=== PATIENT | female | born 1955 | race Caucasian/White ===

== ENCOUNTER 2018-02-17 15:48 | Emergency (ER) | payer BC ==
[~2018-02-17] VITALS: Ht 154.9 cm; Wt 87.4 kg
[~2018-02-17 15:48] MED LIST: ASPIRIN; CLONIDINE; CLONIDINE HCL0.1 MG PO; COUMADIN; COUMADIN,JANTO2.5 MG PO; DILAUDID; DILAUDID2 MG PO; EFFEXOR; EFFEXOR XR37.5 MG PO; KLOR-CON M2020 MEQ PO; L-LYSINE500 M2 PO; MULTIVITAMIN1 EAC1 PO; MVI; OMEPRAZOLE10 MG PO; POTASSIUM; PREMARIN; PREMARIN0.625 MG PO; PRILOSEC; SIMVASTATIN40 M1 PO; TRIAMTERENE-HC1 EAC3 PO; VITAMIN D; VITAMIN D31000 UNIT PO; ZOCOR; ZYRTEC; ZYRTEC10 M2 PO; [UNRECOGNIZED DRUG - REMARK]
[2018-02-17 16:27] LABS: HEMATOCRIT 42.3 % (36.0-46.0); HEMOGLOBIN 13.9 G/DL (11.9-15.5); MCH 29.6 PG (29.0-34.0); MCHC 32.9 G/DL (30.0-36.0); PLATELET COUNT 201 K/uL (156-360); RBC DIS.WIDTH-CV 13.1 % (11.8-14.6); RBC DIS.WIDTH-SD 43.7 % (39-53); WHITE BLOOD COUNT 7.3 K/uL (4.1-10.2)
[2018-02-17 16:36] LABS: CHLORIDE 103 mEq/L (99-109); POTASSIUM 3.7 mEq/L (3.7-5.4); SODIUM 138 mEq/L (136-147)
[2018-02-17 16:38] LABS: GLUCOSE 92 mg/dL (70-99)
[2018-02-17 16:42] LABS: GFR ESTIMATE (CALCULATED) > 59 mL/min/
[2018-02-17 16:43] LABS: UREA NITROGEN (BUN) 21 mg/dL (9-23)
[2018-02-17 16:50] LABS: TROP-I INTERPRETATION NEGATIVE; TROPONIN-I < 0.01 ng/mL (0.0-0.30)
[2018-02-17 18:55] LABS: ALBUMIN 4.1 g/dL (3.2-4.8)
[2018-02-17 18:58] LABS: TOTAL PROTEIN 7.2 g/dL (6.4-8.3)
[2018-02-17 19:00] LABS: TOTAL BILIRUBIN 0.5 mg/dL (0.0-1.0)
[2018-02-17 19:01] LABS: ALKALINE PHOSPHATASE 76 IU/L (3-129)
[2018-02-17 19:04] LABS: ALT (GPT) 15 IU/L (3-49); AST (GOT) 15 IU/L (2-34); DIRECT BILIRUBIN 0.2 mg/dL (0.0-0.3)
[2018-02-17 19:05] LABS: LIPASE 36 U/L (1.0-51.0)
[2018-02-17 19:14] LABS: TROP-I INTERPRETATION NEGATIVE; TROPONIN-I < 0.01 ng/mL (0.0-0.30)
[2018-02-17 21:14] VITALS: BP 152/67
== END 2018-02-17 21:15 | disposition home or self-care (01) ==
LOC: EME 15:48
PROVIDERS: Emergency Medicine
DX: R07.9 Chest pain, unspecified (principal); K80.20 Calculus of gallbladder without cholecystitis without obstruction; K21.9 Gastro-esophageal reflux disease without esophagitis; I10 Essential (primary) hypertension; F41.9 Anxiety disorder, unspecified; Z86.718 Personal history of other venous thrombosis and embolism; Z96.653 Presence of artificial knee joint, bilateral
CPT/HCPCS: 71046; 71275; 76705; 80048; 80076; 83690; 84484; 85027; 93005; 99281; 99285; J7030